=== PATIENT | male | born 1950 | race Caucasian/White ===

== ENCOUNTER 2017-06-21 10:18 | Inpatient (IN) | payer MEDICARE ==
[~2017-06-21] VITALS: Ht 182.9 cm; Wt 106.3 kg
[2017-06-21] MEDS ORDERED: SODIUM CHLORIDE 0.9% 1,000 ML IV ONE (10:55)
[2017-06-21] MEDS ORDERED: DIPHENHYDRAMINE 50 MG/ML, 1ML IVPush ONE (11:00)
[2017-06-21 11:03] VITALS: BP 136/104
[2017-06-21] MEDS ORDERED: ASPI-496 PO (11:08)
[2017-06-21] MEDS ORDERED: MULT1TAB57 PO (11:08)
[2017-06-21] MEDS ORDERED: METO25TA91 PO (11:08)
[2017-06-21] MEDS ORDERED: MIDAZOLAM 1 MG/ML, 5ML ONE ×2 (12:48→13:07)
[2017-06-21] MEDS ORDERED: FENTANYL PF 100 MCG/2ML ONE ×2 (12:48→13:06)
[2017-06-21] MEDS ORDERED: HEPARIN 1,000 UNITS/ML, 10ML ONE ×2 (12:49→13:06)
[2017-06-21] MEDS ORDERED: LIDOCAINE 2%, 20ML ONE ×2 (12:49→13:06)
[2017-06-21] MEDS ORDERED: VERAPAMIL 2.5 MG/ML, 2ML ONE ×2 (12:49→13:06)
[2017-06-21] MEDS ORDERED: BIVALIRUDIN 250 MG ONE ×2 (12:49→13:06)
[2017-06-21] MEDS ORDERED: TICAGRELOR 90 MG TABLET ONE ×2 (12:49→13:07)
[2017-06-21] MEDS: ASPIRIN 81 MG TABLET EC PO SCH (13:00)
[2017-06-21] MEDS ORDERED: ACETAMINOPHEN 325 MG TABLET PO PRN ×2 (14:00→14:30)
[2017-06-21] MEDS ORDERED: METOPROLOL TARTRATE 25 MG TABLET PO ONE (14:30)
[2017-06-21] MEDS ORDERED: INSULIN LISPRO 100 UNITS/ML, PEN SQ-INSULIN SCH (14:30)
[2017-06-21] MEDS ORDERED: BISACODYL 5 MG EC TABLET PO PRN (14:30)
[2017-06-21] MEDS ORDERED: ZOLPIDEM 5MG TABLET PO PRN (14:30)
[2017-06-21] MEDS ORDERED: CHLORHEXIDINE 15 ML BOTTLE MM PRN (14:30)
[2017-06-21 15:14] LABS: BASOPHILS # (AUTO) 0.08 x10^3/uL (0-0.1); BASOPHILS % (AUTO) 1 % (0-1); EOSINOPHILS # (AUTO) 0.29 x10^3/uL (0-0.4); EOSINOPHILS % (AUTO) 3 % (1-7); LYMPHOCYTES # (AUTO) 3.65 x10^3/uL (1-3.4); LYMPHOCYTES % (AUTO) 36 % (22-44); MD NO; MEAN CORPUSCULAR HEMOGLOBIN 31.6 pg (27.5-34.5); MEAN CORPUSCULAR HGB CONC 33.8 g/dL (33.2-36.2); MEAN CORPUSCULAR VOLUME 93.3 fL (81-97); MEAN PLATELET VOLUME 8.7 fL (7.4-10.4); MONOCYTES % (AUTO) 6 % (2-9); NEUTROPHILS # (AUTO) 5.42 x10^3/uL (1.8-6.8); NEUTROPHILS % (AUTO) 54 % (42-75); PLATELET COUNT 246 x10^3/uL (130-400); RED CELL DISTRIBUTION WIDTH 13.8 % (9.4-14.8)
[2017-06-21 15:18] LABS: INTERNATIONAL NORMALIZED RATIO 1.01 (0.93-1.1); PROTHROMBIN TIME 10.5 Seconds (9.6-11.5)
[2017-06-21 15:21] LABS: ALANINE AMINOTRANSFERASE 25 U/L (12-78); ALBUMIN 3.9 g/dL (3.4-5.0); ANION GAP 9 mmol/L (5-15); CALCIUM 8.9 mg/dL (8.5-10.1); CHLORIDE 108 mmol/L (98-107); CREATININE 0.93 mg/dL (0.7-1.3)
[2017-06-21 15:23] LABS: ALKALINE PHOSPHATASE 76 U/L (45-117); BILIRUBIN,TOTAL 0.4 mg/dL (0.2-1.0); TOTAL PROTEIN 7.5 g/dL (6.4-8.2)
[2017-06-21 15:24] VITALS: BP 152/96
[2017-06-21 15:29] LABS: HEMOGLOBIN A1C 6.1 % (4.2-6.3)
[2017-06-21 15:35] VITALS: BP 152/96
[2017-06-21 17:11] LABS: MICROSCOPIC NOT IND
[2017-06-21 19:27] VITALS: BP 127/79
[2017-06-21] MEDS: MUPIROCIN OINT 2%, 22GM TP SCH (21:08)
[2017-06-21] MEDS: SODIUM CHLORIDE FLUSH 10ML SYR IVF SCH (21:09)
[2017-06-22 01:03] VITALS: BP 149/91
[2017-06-22 06:57] VITALS: BP 127/89
[2017-06-22] MEDS ORDERED: DEXMEDETOMIDINE 200 MCG in SODIUM CHLORIDE 0.9% 48 ML IV SCH (07:30)
[2017-06-22] MEDS ORDERED: ALBUMIN HUMAN 5% 500 ML IV PRN (07:30)
[2017-06-22] MEDS ORDERED: POTASSIUM CHLORIDE 80 MEQ, SODIUM BICARBONATE 8.4% 10 MEQ, MAGNESIUM SULFATE 0.5 GM, LI... IV PRN (07:30)
[2017-06-22] MEDS ORDERED: EPINEPHRINE 2 MG in SODIUM CHLORIDE 0.9% 248 ML IV SCH (07:30)
[2017-06-22] MEDS ORDERED: VANCOMYCIN 1,500 MG in SODIUM CHLORIDE 0.9% 250 ML IVPB PRN (07:30)
[2017-06-22] MEDS ORDERED: REGULAR INSULIN 62.5 UNITS in SODIUM CHLORIDE 0.9% 249.375 ML IV PRN ×2 (07:30→17:41)
[2017-06-22] MEDS ORDERED: PHENYLEPHRINE 10 MG in SODIUM CHLORIDE 0.9% 249 ML IV PRN ×2 (07:30→17:41)
[2017-06-22] MEDS ORDERED: MANNITOL PMX 20% 500 ML IVPB PRN (07:30)
[2017-06-22] MEDS: MULTIVITAMIN 1 TABLET PO SCH (07:36)
[2017-06-22] MEDS: ASPIRIN 81 MG TABLET EC PO SCH (07:36)
[2017-06-22] MEDS ORDERED: METOPROLOL SUCCINATE 25 MG TAB.ER.24H PO SCH (09:00)
[2017-06-22] MEDS: SODIUM CHLORIDE FLUSH 10ML SYR IVF SCH ×3 (09:48→21:08)
[2017-06-22] MEDS: MUPIROCIN OINT 2%, 22GM TP SCH ×2 (09:48→21:08)
[2017-06-22 10:03] VITALS: BP_SYST 152; BP_SYST 162; BP_DIAS 81; BP_DIAS 91
[2017-06-22 12:46] VITALS: BP 145/90
[2017-06-22] MEDS ORDERED: MIDAZOLAM 10MG/2 ML ONE (12:48)
[2017-06-22] MEDS ORDERED: SUFentanil 50 MCG/ML, 5ML ONE (12:49)
[2017-06-22] MEDS ORDERED: HEPARIN 1,000 UNITS/ML, 10ML IV ONE (14:41)
[2017-06-22] MEDS ORDERED: PAPAVERINE 30 MG/ML, 2ML IVPush ONE (14:42)
[2017-06-22] MEDS ORDERED: DOBUTAMINE 250 MG in SODIUM CHLORIDE 0.9% 230 ML IV PRN (17:41)
[2017-06-22] MEDS ORDERED: NITROGLYCERIN/D5W PMX 240 ML IV PRN (17:41)
[2017-06-22] MEDS ORDERED: SODIUM CHLORIDE 0.9% 1,000 ML IV PRN (17:41)
[2017-06-22] MEDS ORDERED: ACETAMINOPHEN 650 MG SUPP PR PRN (18:00)
[2017-06-22] MEDS ORDERED: BISACODYL 5 MG EC TABLET PO PRN (18:00)
[2017-06-22] MEDS ORDERED: ONDANSETRON 2MG/ML, 2ML IVPush PRN (18:00)
[2017-06-22] MEDS ORDERED: LACTATED RINGERS 1,000 ML IV PRN (18:00)
[2017-06-22] MEDS ORDERED: ACETAMINOPHEN 325 MG TABLET PO PRN (18:00)
[2017-06-22] MEDS ORDERED: EPINEPHRINE 2 MG in SODIUM CHLORIDE 0.9% 248 ML IV PRN (18:00)
[2017-06-22] MEDS ORDERED: BISACODYL 10 MG SUPP PR PRN (18:00)
[2017-06-22] MEDS ORDERED: INSULIN REGULAR 100 UNITS/ML, 3ML VIAL IVPush PRN (18:00)
[2017-06-22] MEDS: KSCALE TO 4.5 IV SCH (18:00)
[2017-06-22] MEDS ORDERED: GLUCAGON 1 MG IM PRN (18:00)
[2017-06-22] MEDS ORDERED: DEXTROSE 4 GM TAB.CHEW PO PRN (18:00)
[2017-06-22] MEDS ORDERED: PROCHLORPERAZINE 5 MG/ML, 2ML IVPush PRN (18:00)
[2017-06-22] MEDS ORDERED: DEXTROSE 50%, 50ML SYRINGE IVPush PRN (18:00)
[2017-06-22] MEDS ORDERED: SODIUM BICARB 8.4%, 50ML SYRINGE IV PRN (18:00)
[2017-06-22] MEDS ORDERED: MIDAZOLAM 1 MG/ML, 5ML IVPush PRN (18:00)
[2017-06-22] MEDS ORDERED: SODIUM BICARB 8.4%, 50ML SYRINGE ONE (18:06)
[2017-06-22] MEDS ORDERED: LIDOCAINE 2% 100MG/5ML SYRINGE ONE (18:06)
[2017-06-22] MEDS ORDERED: SODIUM BICARBONATE 1 MEQ/ML, 50ML VIAL ONE (18:06)
[2017-06-22] MEDS ORDERED: methylPREDNISolone SOD SUCC 125 MG/2 ML ONE (18:07)
[2017-06-22] MEDS ORDERED: HEPARIN 1,000 UNITS/ML, 30ML ONE (18:07)
[2017-06-22] MEDS ORDERED: ALBUMIN HUMAN 25% 50 ML ONE (18:07)
[2017-06-22 18:24] LABS: GLUCOSE BY BLOOD GAS ANALYZER 155 mg/dL (70-110); HEMOGLOBIN BY BLOOD GAS ANALYZ 13.1 g/dL (14.0-18.0); POTASSIUM BY BLOOD GAS ANALYZR 3.4 mmol/L (3.6-5.5)
[2017-06-22 18:36] LABS: INTERNATIONAL NORMALIZED RATIO 1.16 (0.93-1.1)
[2017-06-22] MEDS: DEXMEDETOMIDINE 200 MCG in SODIUM CHLORIDE 0.9% 48 ML IV PRN (19:20)
[2017-06-22] MEDS: MAGNESIUM SULFATE 1 GM in SODIUM CHLORIDE 0.9% 50 ML IVPB SCH (19:20)
[2017-06-22] MEDS: CHLORHEXIDINE 15 ML BOTTLE MM SCH (19:21)
[2017-06-22] MEDS: DOCUSATE 100 MG CAPSULE PO SCH ×2 (19:21→21:07)
[2017-06-22] MEDS ORDERED: POTASSIUM CHLORIDE 30 MEQ in SODIUM CHLORIDE 0.9% 100 ML IV ONE (19:30)
[2017-06-22] MEDS: INSULIN LISPRO 100 UNITS/ML, PEN SQ-INSULIN SCH (21:07)
[2017-06-22] MEDS: MUPIROCIN OINT 2%, 22GM NAS SCH (21:08)
[2017-06-22] MEDS: VANCOMYCIN 1,500 MG in SODIUM CHLORIDE 0.9% 250 ML IVPB SCH (23:11)
[2017-06-23] MEDS: morphine SULFATE 10 MG/ML, 1ML IVPush PRN ×2 (00:08→01:42)
[2017-06-23] MEDS: DEXMEDETOMIDINE 200 MCG in SODIUM CHLORIDE 0.9% 48 ML IV PRN ×2 (00:08→04:09)
[2017-06-23] MEDS: KSCALE TO 4.5 IV SCH ×3 (00:45→12:00)
[2017-06-23] MEDS ORDERED: POTASSIUM CHLORIDE PMX 100 ML IV ONE (01:00)
[2017-06-23 04:46] LABS: ALBUMIN 3.4 g/dL (3.4-5.0); ANION GAP 10 mmol/L (5-15); CALCIUM 7.8 mg/dL (8.5-10.1); CHLORIDE 115 mmol/L (98-107); CREATININE 1.28 mg/dL (0.7-1.3)
[2017-06-23 04:51] LABS: MEAN CORPUSCULAR HEMOGLOBIN 31.9 pg (27.5-34.5); MEAN CORPUSCULAR VOLUME 93.9 fL (81-97); MEAN PLATELET VOLUME 8.5 fL (7.4-10.4); PLATELET COUNT 193 x10^3/uL (130-400); RED BLOOD COUNT 3.96 x10^6/uL (4.38-5.82); RED CELL DISTRIBUTION WIDTH 13.4 % (9.4-14.8)
[2017-06-23 05:00] VITALS: BP 104/52
[2017-06-23 05:23] LABS: BASOPHILS % (AUTO) 0 % (0-1); EOSINOPHILS % (AUTO) 0 % (1-7); LYMPHOCYTES # (AUTO) 1.11 x10^3/uL (1-3.4); LYMPHOCYTES % (AUTO) 6 % (22-44); MD SCAN; MONOCYTES # (AUTO) 1.21 x10^3/uL (0.2-0.8); MONOCYTES % (AUTO) 6 % (2-9); NEUTROPHILS # (AUTO) 17.07 x10^3/uL (1.8-6.8); NEUTROPHILS % (AUTO) 88 % (42-75)
[2017-06-23] MEDS: OXYcodone IR 5MG TABLET PO PRN ×5 (06:08→21:16)
[2017-06-23] MEDS: CHLORHEXIDINE 15 ML BOTTLE MM SCH ×2 (06:08→18:02)
[2017-06-23] MEDS: INSULIN LISPRO 100 UNITS/ML, PEN SQ-INSULIN SCH ×4 (07:00→21:16)
[2017-06-23] MEDS ORDERED: GLUCAGON 1 MG IM PRN (08:30)
[2017-06-23] MEDS ORDERED: MAGNESIUM HYDROXIDE 8%, 30ML UDC PO PRN (08:30)
[2017-06-23] MEDS ORDERED: DEXTROSE 4 GM TAB.CHEW PO PRN (08:30)
[2017-06-23] MEDS ORDERED: DEXTROSE 50%, 50ML SYRINGE IVPush PRN (08:30)
[2017-06-23] MEDS: MUPIROCIN OINT 2%, 22GM TP SCH ×2 (09:00→21:14)
[2017-06-23] MEDS ORDERED: SODIUM CHLORIDE FLUSH 10ML SYR IVF SCH (09:00)
[2017-06-23] MEDS: ASPIRIN 81 MG TABLET EC PO SCH ×2 (09:00→09:30)
[2017-06-23] MEDS: MULTIVITAMIN 1 TABLET PO SCH (09:28)
[2017-06-23] MEDS: METOPROLOL TARTRATE 25 MG TABLET PO/NG SCH ×2 (09:30→21:24)
[2017-06-23] MEDS: DOCUSATE 100 MG CAPSULE PO SCH ×2 (09:30→21:14)
[2017-06-23] MEDS: MUPIROCIN OINT 2%, 22GM NAS SCH ×2 (09:30→21:00)
[2017-06-23] MEDS: VANCOMYCIN 1,500 MG in SODIUM CHLORIDE 0.9% 250 ML IVPB SCH (13:49)
[2017-06-23] MEDS: FUROSEMIDE 20 MG TABLET PO SCH (18:01)
[2017-06-23] MEDS: POTASSIUM CHLORIDE 10 MEQ TABLET.ER PO SCH (18:01)
[2017-06-23] MEDS: SODIUM CHLORIDE FLUSH 10ML SYR IVF SCH ×3 (18:02→21:13)
[2017-06-23] MEDS: MAGNESIUM SULFATE 1 GM in SODIUM CHLORIDE 0.9% 50 ML IVPB SCH (19:40)
[2017-06-23] MEDS: ATORVASTATIN 80 MG TABLET PO SCH (21:00)
[2017-06-23] MEDS ORDERED: SIMVASTATIN 20 MG TABLET PO SCH (21:00)
[2017-06-23 21:20] VITALS: BP 114/62
[2017-06-23 23:58] VITALS: BP 123/70
[2017-06-24] MEDS: OXYcodone IR 5MG TABLET PO PRN ×5 (00:20→18:17)
[2017-06-24 04:52] VITALS: BP 145/89
[2017-06-24 05:09] LABS: MEAN CORPUSCULAR HEMOGLOBIN 31.8 pg (27.5-34.5); MEAN CORPUSCULAR HGB CONC 33.8 g/dL (33.2-36.2); MEAN PLATELET VOLUME 8.6 fL (7.4-10.4); PLATELET COUNT 142 x10^3/uL (130-400); RED BLOOD COUNT 3.62 x10^6/uL (4.38-5.82); RED CELL DISTRIBUTION WIDTH 13.9 % (9.4-14.8)
[2017-06-24] MEDS: CHLORHEXIDINE 15 ML BOTTLE MM SCH ×2 (05:16→17:54)
[2017-06-24 05:20] LABS: ANION GAP 9 mmol/L (5-15); CHLORIDE 109 mmol/L (98-107)
[2017-06-24 05:22] LABS: CREATININE 0.91 mg/dL (0.7-1.3)
[2017-06-24 06:07] LABS: BASOPHILS # (AUTO) 0.08 x10^3/uL (0-0.1); BASOPHILS % (AUTO) 0 % (0-1); EOSINOPHILS # (AUTO) 0.01 x10^3/uL (0-0.4); EOSINOPHILS % (AUTO) 0 % (1-7); LYMPHOCYTES % (AUTO) 9 % (22-44); MD SCAN; MONOCYTES # (AUTO) 0.98 x10^3/uL (0.2-0.8); MONOCYTES % (AUTO) 5 % (2-9); NEUTROPHILS # (AUTO) 18.22 x10^3/uL (1.8-6.8); NEUTROPHILS % (AUTO) 86 % (42-75)
[2017-06-24] MEDS: INSULIN LISPRO 100 UNITS/ML, PEN SQ-INSULIN SCH ×4 (07:00→22:53)
[2017-06-24 07:08] VITALS: BP 124/72
[2017-06-24] MEDS: ASPIRIN 81 MG TABLET EC PO SCH ×2 (08:41→08:50)
[2017-06-24] MEDS: MUPIROCIN OINT 2%, 22GM TP SCH ×2 (08:41→09:01)
[2017-06-24] MEDS: POTASSIUM CHLORIDE 10 MEQ TABLET.ER PO SCH ×2 (08:50→17:54)
[2017-06-24] MEDS: MULTIVITAMIN 1 TABLET PO SCH (08:50)
[2017-06-24] MEDS: FUROSEMIDE 20 MG TABLET PO SCH ×2 (08:50→17:54)
[2017-06-24] MEDS: DOCUSATE 100 MG CAPSULE PO SCH ×2 (08:50→22:46)
[2017-06-24] MEDS: SODIUM CHLORIDE FLUSH 10ML SYR IVF SCH ×4 (08:51→22:46)
[2017-06-24] MEDS: ENOXAPARIN 40 MG/0.4 ML SQ SCH (08:52)
[2017-06-24] MEDS ORDERED: LISINOPRIL 5 MG TABLET PO SCH (09:00)
[2017-06-24] MEDS: MUPIROCIN OINT 2%, 22GM NAS SCH ×2 (09:00→22:47)
[2017-06-24] MEDS ORDERED: METOPROLOL TARTRATE 25 MG TABLET PO/NG SCH (09:00)
[2017-06-24 12:16] VITALS: BP 136/73
[2017-06-24] MEDS: CARVEDILOL 6.25 MG TABLET PO SCH (17:54)
[2017-06-24] MEDS: MAGNESIUM SULFATE 1 GM in SODIUM CHLORIDE 0.9% 50 ML IVPB SCH (18:16)
[2017-06-24 20:30] VITALS: BP 136/76
[2017-06-24] MEDS: ATORVASTATIN 80 MG TABLET PO SCH (22:47)
[2017-06-24] MEDS: HYDROcodone/APAP 5/325 TABLET PO PRN (22:50)
[2017-06-25 05:00] VITALS: BP 157/84
[2017-06-25] MEDS: CHLORHEXIDINE 15 ML BOTTLE MM SCH ×2 (05:25→17:25)
[2017-06-25] MEDS: CARVEDILOL 6.25 MG TABLET PO SCH ×2 (05:26→17:24)
[2017-06-25] MEDS: HYDROcodone/APAP 5/325 TABLET PO PRN ×3 (05:26→22:04)
[2017-06-25 05:39] LABS: MEAN CORPUSCULAR HEMOGLOBIN 31.9 pg (27.5-34.5); MEAN CORPUSCULAR HGB CONC 33.8 g/dL (33.2-36.2); MEAN CORPUSCULAR VOLUME 94.1 fL (81-97); MEAN PLATELET VOLUME 9.1 fL (7.4-10.4); PLATELET COUNT 154 x10^3/uL (130-400); RED BLOOD COUNT 3.52 x10^6/uL (4.38-5.82); RED CELL DISTRIBUTION WIDTH 13.4 % (9.4-14.8)
[2017-06-25 05:46] LABS: CHLORIDE 108 mmol/L (98-107)
[2017-06-25 05:53] LABS: ANION GAP 7 mmol/L (5-15); CALCIUM 8.2 mg/dL (8.5-10.1); CREATININE 0.77 mg/dL (0.7-1.3)
[2017-06-25 06:10] LABS: BASOPHILS # (AUTO) 0.09 x10^3/uL (0-0.1); BASOPHILS % (AUTO) 1 % (0-1); EOSINOPHILS # (AUTO) 0.03 x10^3/uL (0-0.4); EOSINOPHILS % (AUTO) 0 % (1-7); LYMPHOCYTES # (AUTO) 2.04 x10^3/uL (1-3.4); LYMPHOCYTES % (AUTO) 12 % (22-44); MD SCAN; MONOCYTES # (AUTO) 1.11 x10^3/uL (0.2-0.8); MONOCYTES % (AUTO) 7 % (2-9); NEUTROPHILS # (AUTO) 13.52 x10^3/uL (1.8-6.8); NEUTROPHILS % (AUTO) 81 % (42-75)
[2017-06-25 06:41] VITALS: BP 120/73
[2017-06-25] MEDS: INSULIN LISPRO 100 UNITS/ML, PEN SQ-INSULIN SCH ×3 (09:18→17:23)
[2017-06-25] MEDS: LISINOPRIL 10 MG TABLET PO SCH ×2 (09:19→21:00)
[2017-06-25] MEDS: FUROSEMIDE 20 MG/2 ML IV SCH ×2 (09:19→17:25)
[2017-06-25] MEDS: POTASSIUM CHLORIDE 10 MEQ TABLET.ER PO SCH ×2 (09:19→17:24)
[2017-06-25] MEDS: MUPIROCIN OINT 2%, 22GM NAS SCH ×2 (09:20→22:03)
[2017-06-25] MEDS: DOCUSATE 100 MG CAPSULE PO SCH ×2 (09:20→22:03)
[2017-06-25] MEDS: MULTIVITAMIN 1 TABLET PO SCH (09:21)
[2017-06-25] MEDS: ASPIRIN 81 MG TABLET EC PO SCH (09:21)
[2017-06-25] MEDS: CLOPIDOGREL 75 MG TABLET PO SCH (09:21)
[2017-06-25] MEDS: SODIUM CHLORIDE FLUSH 10ML SYR IVF SCH ×4 (09:23→22:03)
[2017-06-25] MEDS: ENOXAPARIN 40 MG/0.4 ML SQ SCH (09:23)
[2017-06-25 13:08] VITALS: BP 119/67
[2017-06-25 19:24] VITALS: BP 121/72
[2017-06-25] MEDS: ATORVASTATIN 80 MG TABLET PO SCH (22:03)
[2017-06-26 01:39] VITALS: BP 118/68
[2017-06-26 05:23] LABS: BASOPHILS # (AUTO) 0.17 x10^3/uL (0-0.1); BASOPHILS % (AUTO) 1 % (0-1); EOSINOPHILS # (AUTO) 0.07 x10^3/uL (0-0.4); EOSINOPHILS % (AUTO) 1 % (1-7); LYMPHOCYTES # (AUTO) 2.16 x10^3/uL (1-3.4); LYMPHOCYTES % (AUTO) 16 % (22-44); MD NO; MEAN CORPUSCULAR HEMOGLOBIN 31.8 pg (27.5-34.5); MEAN CORPUSCULAR HGB CONC 33.6 g/dL (33.2-36.2); MEAN CORPUSCULAR VOLUME 94.5 fL (81-97); MEAN PLATELET VOLUME 9.6 fL (7.4-10.4); MONOCYTES # (AUTO) 0.96 x10^3/uL (0.2-0.8); MONOCYTES % (AUTO) 7 % (2-9); NEUTROPHILS # (AUTO) 10.38 x10^3/uL (1.8-6.8); NEUTROPHILS % (AUTO) 76 % (42-75); PLATELET COUNT 168 x10^3/uL (130-400); RED BLOOD COUNT 3.49 x10^6/uL (4.38-5.82); RED CELL DISTRIBUTION WIDTH 13.3 % (9.4-14.8)
[2017-06-26 05:24] LABS: ANION GAP 10 mmol/L (5-15); CHLORIDE 108 mmol/L (98-107)
[2017-06-26 05:27] LABS: CREATININE 0.83 mg/dL (0.7-1.3)
[2017-06-26] MEDS: CARVEDILOL 6.25 MG TABLET PO SCH ×2 (06:41→17:32)
[2017-06-26] MEDS: CHLORHEXIDINE 15 ML BOTTLE MM SCH ×2 (06:42→17:32)
[2017-06-26 06:49] VITALS: BP 135/81
[2017-06-26] MEDS: POTASSIUM CHLORIDE 10 MEQ TABLET.ER PO SCH ×2 (08:31→17:32)
[2017-06-26] MEDS: FUROSEMIDE 20 MG/2 ML IV SCH ×2 (08:31→17:32)
[2017-06-26] MEDS: SODIUM CHLORIDE FLUSH 10ML SYR IVF SCH ×4 (08:32→21:19)
[2017-06-26] MEDS: MULTIVITAMIN 1 TABLET PO SCH (08:33)
[2017-06-26] MEDS: CLOPIDOGREL 75 MG TABLET PO SCH (08:33)
[2017-06-26] MEDS: DOCUSATE 100 MG CAPSULE PO SCH ×2 (08:33→21:00)
[2017-06-26] MEDS: LISINOPRIL 10 MG TABLET PO SCH ×2 (08:33→21:00)
[2017-06-26] MEDS: ASPIRIN 81 MG TABLET EC PO SCH (08:33)
[2017-06-26] MEDS: ENOXAPARIN 40 MG/0.4 ML SQ SCH (08:34)
[2017-06-26] MEDS: MUPIROCIN OINT 2%, 22GM NAS SCH ×2 (08:44→21:19)
[2017-06-26] MEDS ORDERED: MAGNESIUM SULFATE PMX 2GM/50ML 50 ML IV ONE (10:30)
[2017-06-26] MEDS ORDERED: POTASSIUM CHLORIDE 20 MEQ TAB.ER.PRT PO ONE (10:30)
[2017-06-26] MEDS: HYDROcodone/APAP 5/325 TABLET PO PRN (10:37)
[2017-06-26 14:44] VITALS: BP 133/75
[2017-06-26 19:16] VITALS: BP 112/68
[2017-06-26] MEDS: ATORVASTATIN 80 MG TABLET PO SCH (21:19)
[2017-06-27 00:35] VITALS: BP 135/77
[2017-06-27 05:08] LABS: MEAN CORPUSCULAR HEMOGLOBIN 31.5 pg (27.5-34.5); MEAN CORPUSCULAR HGB CONC 33.7 g/dL (33.2-36.2); MEAN CORPUSCULAR VOLUME 93.4 fL (81-97); MEAN PLATELET VOLUME 9.6 fL (7.4-10.4); PLATELET COUNT 202 x10^3/uL (130-400); RED BLOOD COUNT 3.68 x10^6/uL (4.38-5.82)
[2017-06-27 05:12] LABS: ANION GAP 8 mmol/L (5-15); CALCIUM 8.6 mg/dL (8.5-10.1); CHLORIDE 109 mmol/L (98-107); CREATININE 0.86 mg/dL (0.7-1.3)
[2017-06-27 05:49] LABS: BASOPHILS # (AUTO) 0.05 x10^3/uL (0-0.1); BASOPHILS % (AUTO) 0 % (0-1); EOSINOPHILS # (AUTO) 0.13 x10^3/uL (0-0.4); EOSINOPHILS % (AUTO) 1 % (1-7); LYMPHOCYTES # (AUTO) 2.11 x10^3/uL (1-3.4); LYMPHOCYTES % (AUTO) 15 % (22-44); MD SCAN; MONOCYTES # (AUTO) 1.15 x10^3/uL (0.2-0.8); MONOCYTES % (AUTO) 8 % (2-9); NEUTROPHILS # (AUTO) 10.85 x10^3/uL (1.8-6.8); NEUTROPHILS % (AUTO) 76 % (42-75)
[2017-06-27] MEDS: CHLORHEXIDINE 15 ML BOTTLE MM SCH (06:31)
[2017-06-27] MEDS: CARVEDILOL 6.25 MG TABLET PO SCH (06:31)
[2017-06-27 06:40] VITALS: BP 128/87
[2017-06-27] MEDS ORDERED: DOXY100T PO (08:27)
[2017-06-27] MEDS ORDERED: CLOP75TA PO (08:27)
[2017-06-27] MEDS ORDERED: ATOR-2 PO (08:27)
[2017-06-27] MEDS ORDERED: POTA10TA5 PO (08:27)
[2017-06-27] MEDS ORDERED: DOCU-131 PO (08:27)
[2017-06-27] MEDS ORDERED: CARV6.2512 PO (08:27)
[2017-06-27] MEDS ORDERED: FURO40TA6 PO (08:27)
[2017-06-27] MEDS ORDERED: LISI-167 PO (08:27)
[2017-06-27] MEDS: FUROSEMIDE 20 MG/2 ML IV SCH (08:52)
[2017-06-27] MEDS: SODIUM CHLORIDE FLUSH 10ML SYR IVF SCH ×2 (08:52)
[2017-06-27] MEDS: MUPIROCIN OINT 2%, 22GM NAS SCH (08:53)
[2017-06-27] MEDS: ASPIRIN 81 MG TABLET EC PO SCH (08:54)
[2017-06-27] MEDS: MULTIVITAMIN 1 TABLET PO SCH (08:54)
[2017-06-27] MEDS: LISINOPRIL 10 MG TABLET PO SCH (08:54)
[2017-06-27] MEDS: CLOPIDOGREL 75 MG TABLET PO SCH (08:54)
[2017-06-27] MEDS: POTASSIUM CHLORIDE 10 MEQ TABLET.ER PO SCH (08:54)
[2017-06-27] MEDS: DOCUSATE 100 MG CAPSULE PO SCH (08:55)
[2017-06-27] MEDS ORDERED: DOXYCYCLINE 100MG TABLET PO SCH (09:00)
[2017-06-27] MEDS: ENOXAPARIN 40 MG/0.4 ML SQ SCH (09:07)
[2017-06-27 09:16] LABS: MICROSCOPIC NOT IND
[2017-06-27 09:22] LABS: CULTURE INDICATED? NO
[2017-06-27] MEDS ORDERED: HYDR-3240 PO (11:48)
== END 2017-06-27 12:15 | disposition home health service (06) | DRG 233 ==
LOC: CACL 10:18 → ORIP 14:17 → 5SO 15:15 → CCU 06-22 13:38 → 5SO 06-23 23:52 → DCLOUNGE 06-27 11:38
PROVIDERS: ADMIT Internal Medicine Cardiovascular Disease; ATTEND Internal Medicine Cardiovascular Disease
PROC: 4A023N7 Measurement of Cardiac Sampling and Pressure, Left Heart, Percutaneous Approach (ICD-10-PCS; principal; 2017-06-21)
PROC: B2111ZZ Fluoroscopy of Multiple Coronary Arteries using Low Osmolar Contrast (ICD-10-PCS; 2017-06-21)
PROC: B2151ZZ Fluoroscopy of Left Heart using Low Osmolar Contrast (ICD-10-PCS; 2017-06-21)
PROC: 02100Z9 Bypass Coronary Artery, One Artery from Left Internal Mammary, Open Approach (ICD-10-PCS; 2017-06-22)
PROC: 021209W Bypass Coronary Artery, Three Arteries from Aorta with Autologous Venous Tissue, Open Approach (ICD-10-PCS; 2017-06-22)
PROC: 06BP4ZZ Excision of Right Saphenous Vein, Percutaneous Endoscopic Approach (ICD-10-PCS; 2017-06-22)
PROC: 5A1221Z Performance of Cardiac Output, Continuous (ICD-10-PCS; 2017-06-22)
PROC: 02HV33Z Insertion of Infusion Device into Superior Vena Cava, Percutaneous Approach (ICD-10-PCS; 2017-06-22)
PROC: B548ZZA Ultrasonography of Superior Vena Cava, Guidance (ICD-10-PCS; 2017-06-22)
PROC: B24BZZ4 Ultrasonography of Heart with Aorta, Transesophageal (ICD-10-PCS; 2017-06-22)
DX: I25.119 Atherosclerotic heart disease of native coronary artery with unspecified angina pectoris (principal); I50.31 Acute diastolic (congestive) heart failure; E87.0 Hyperosmolality and hypernatremia; I95.9 Hypotension, unspecified; I25.82 Chronic total occlusion of coronary artery; I11.0 Hypertensive heart disease with heart failure; J98.11 Atelectasis; E78.5 Hyperlipidemia, unspecified; E78.00 Pure hypercholesterolemia, unspecified; I49.3 Ventricular premature depolarization; R73.03 Prediabetes; Z87.891 Personal history of nicotine dependence; Z82.49 Family history of ischemic heart disease and other diseases of the circulatory system
CPT/HCPCS: 36415; 36600; 71045; 71046; 80048; 80053; 81003; 82040; 82330; 82800; 82803; 82810; 82947; 82962; 83036; 83735; 84132; 84295; 85014; 85018; 85025; 85049; 85347; 85610; 85730; 86850; 86900; 86923; 87081; 93005; 93306; 93312; 93321; 93325; 93458; 93880; 93970; 94002; 94003; 94150; 99156; C1769; C1894; J0583; J1644; J1650; J1815; J2250; J3010; J3370; J3475; J3480; J3490; P9045; P9047; C1751; C1760; J0171; J1940; J2270; J2370; J2440; J2930; J7050; Q9967